=== PATIENT | male | born 1955 | race Caucasian/White ===

== ENCOUNTER 2017-11-03 10:18 | Emergency (ER) | payer SELFPAY ==
[2017-11-03] MEDS ORDERED: MORPHINE SULFATE 10 MG/ML SYRINGE. IM ONE (10:45)
[2017-11-03] MEDS ORDERED: ONDANSETRON ODT 4 MG TAB.RAPDIS PO ONE (10:45)
[2017-11-03] MEDS ORDERED: oxyCODONE/APAP 5/325 1 TAB TABLET PO ONE (12:15)
--- NOTE | 2017-11-03 12:27 | RAD ---
Scrotal ultrasound, 11/03/2017: HISTORY: Right-sided pain The right testicle measures 2.8 x 2.2 x 3.6 cm while the left testicle measures 2.7 x 1.9 x 3.4 cm. There is symmetric blood flow within the testicles. There are single small nonspecific calcifications in both testicles. No testicular mass is seen. No epididymal abnormality is detected. Small bilateral hydroceles are noted. IMPRESSION: 1. Small bilateral hydroceles. 2. No significant testicular abnormality is detected. Electronically signed by: Jonathan Loving MD (11/03/2017 12:24 PM) [facility] [place]
[2017-11-03 12:43] VITALS: BP 142/87
--- NOTE | 2017-11-03 12:59 | RAD ---
History: Right groin pain radiating down the right testicle after lifting something heavy. Comparison: None. Findings: A right inguinal hernia is seen. Hernia defect is estimated at 8 mm . Hernia it is thought to contain fat. No convincing herniated bowel is identified. Impression: Small right inguinal hernia is seen. Hernia defect is estimated at 8 mm. Electronically signed by: Jaya Hardwick MD (11/03/2017 12:56 PM) [facility]
--- NOTE | 2017-11-03 13:22 | ED.ADGEN ---
Past History Past Medical History: Heart Disease, [place], Other Past Surgical History: Appendectomy, Cholecystectomy, Coronary Bypass Surgery, Pacemaker, Other Alcohol Use: None Drug Use: None Adult General Chief Complaint Chief Complaint Right groin pain [facility] HPI Patient is a 61-year-old male who presents with acute onset right groin pain radiating to right testicle while bending over and lifting a heavy mower deck. It is described as moderate to severe. It with tenderness to palpation and mild swelling on exam. No nausea vomiting. No upper mid abdominal pain. No scrotal edema swelling or obvious hernia. Flank pain or back pain. No other acute symptoms or complaints. There is left inguinal hernia repair. The injury occurred while patient was at work.[] Review of Systems Review of Systems ROS as per HPI. All other systems were reviewed and found to be within normal limits, except as documented in this note. Current Medications Current Medications Current Medications Medications (Trade) Dose Ordered Sig/Lesli Start Time Stop Time Status Last Admin Dose Admin Morphine Sulfate (Morphine 10mg Syringe) 10 mg 1X ONCE 11/03/17 10:45 11/03/17 10:47 DC 11/03/17 10:45 10 MG Ondansetron HCl (Zofran Odt) 4 mg 1X ONCE 11/03/17 10:45 11/03/17 10:47 DC 11/03/17 10:45 4 MG Oxycodone/ Acetaminophen (Percocet 5/325) 1 tab 1X ONCE 11/03/17 12:15 11/03/17 12:18 DC 11/03/17 12:14 1 TAB Allergies Allergies Allergies Coded Allergies Type Severity Reaction Last Updated Verified No Known Drug Allergies 11/03/17 No Physical Exam Physical Exam Constitutional: Well developed, well nourished, moderate discomfort secondary to pain. [] HENT: Normocephalic, atraumatic, bilateral external ears normal, oropharynx moist, nose normal. [] Eyes: PERRLA, EOMI, conjunctiva normal, no discharge. [] Neck: Normal range of motion, no tenderness, supple, no stridor. [] Cardiovascular:Heart rate regular rhythm, no murmur [] Lungs & Thorax: Bilateral breath sounds clear to auscultation [] Abdomen: Bowel sounds normal, soft, no tenderness. [] : Right inguinal tenderness to palpation, mild edema, no scrotal pain, tenderness, masses or bruising. Right testicular pain/tenderness, mild. Penis circumcised. [] Back: No tenderness. [] Extremities: No tenderness, no cyanosis, no clubbing, ROM intact, no edema. [] Neurologic: Alert and oriented X 3, normal motor function, normal sensory function, no focal deficits noted. [] Psychologic: Affect normal, judgement normal, mood normal. [] Current Patient Data Vital Signs Vital Signs Date Time Temp Pulse Resp B/P (MAP) Pulse Ox O2 Delivery O2 Flow Rate FiO2 11/03/17 10:18 98.0 73 16 98 Room Air EKG EKG [] Radiology/Procedures Radiology/Procedures [Ultrasound testicular/scrotal/abdominal limited: Small right inguinal hernia, small bilateral hydroceles per radiology report.] Course & Med Decision Making Course & Med Decision Making Pertinent Labs and Imaging studies reviewed. (See chart for details) [Exam consistent with right inguinal hernia secondary to lifting. No evidence of bowel trauma. Pain addressed with improvement. Recommendations/work comp follow-up. Will treat supportively.] Final Impression Final Impression [1. Right inguinal pain 2. Right inguinal hernia] Dragon Disclaimer Dragon Disclaimer This electronic medical record was generated, in whole or in part, using a voice recognition dictation system. JESSICA SHAH DO November 03, 2017 13:22
== END 2017-11-03 13:15 | disposition home or self-care (01) ==
LOC: ER 10:18
DX: K40.90 Unilateral inguinal hernia, without obstruction or gangrene, not specified as recurrent (principal); N43.3 Hydrocele, unspecified; I25.2 Old myocardial infarction; Z90.49 Acquired absence of other specified parts of digestive tract; Z95.0 Presence of cardiac pacemaker; Z95.1 Presence of aortocoronary bypass graft
CPT/HCPCS: 76870; 93975; 96372; 99284; J2270; Q0162

== ENCOUNTER 2017-11-13 14:15 | Emergency (ER) | payer OTHER, MEDICARE ==
[2017-11-13] MEDS ORDERED: IV NORMAL SALINE 1,000ML 1,000 ML IV SCH (16:12)
[2017-11-13] MEDS ORDERED: PROCHLORPERAZINE 10 MG/2 ML VIAL. IV ONE (16:30)
[2017-11-13] MEDS ORDERED: CONTRAST GIVEN MC PRN (17:00)
[2017-11-13] MEDS ORDERED: IOHEXOL 300 MG/ML 75 ML VIAL. IV ONE (17:15)
[2017-11-13] MEDS: HYDROmorphone PF 1 MG/ML DISP.SYRIN IV/SQ PRN ×2 (17:23→18:38)
[2017-11-13 17:41] LABS: BASO % 0 % (0-3); EOS # 0.1 x10^3/uL (0.0-0.7); EOS % 1 % (0-3); HEMATOCRIT 41.8 % (39.0-53.0); HEMOGLOBIN 14.3 g/dL (13.0-17.5); LYMPH # 2.9 x10^3/uL (1.0-4.8); LYMPH % 44 % (24-48); MEAN CORPUSCULAR HEMOGLOBIN 31 pg (25-35); MEAN CORPUSCULAR HGB CONC 34 g/dL (31-37); MEAN CORPUSCULAR VOLUME 89 fL (79-100); MONO # 0.5 x10^3/uL (0.0-1.1); MONO % 7 % (0-9); NEUT # 3.2 x10^3uL (1.8-7.7); NEUT % 48 % (31-73); PLATELET COUNT 189 x10^3/uL (140-400); RED BLOOD COUNT 4.68 x10^6/uL (4.30-5.70); RED CELL DISTRIBUTION WIDTH 13.3 % (11.5-14.5); WHITE BLOOD COUNT 6.6 x10^3/uL (4.0-11.0)
[2017-11-13 17:53] LABS: ALBUMIN 3.5 g/dL (3.4-5.0); ALBUMIN/GLOBULIN RATIO 0.9 (1.0-1.7); CALCIUM 8.3 mg/dL (8.5-10.1); POTASSIUM 4.1 mmol/L (3.5-5.1); TOTAL BILIRUBIN 0.4 mg/dL (0.2-1.0); TOTAL PROTEIN 7.2 g/dL (6.4-8.2)
[2017-11-13 18:10] LABS: BACTERIA,URINE 0 /HPF (0-FEW); BILIRUBIN,URINE NEG (NEG); CLARITY,URINE HAZY; COLOR,URINE YELLOW; GLUCOSE,URINE NEG (NEG); NITRITE,URINE NEG (NEG); SQUAMOUS EPITHELIAL CELL,UR MOD /LPF; UROBILINOGEN,URINE 4 mg/dL (0.2 mg/dL)
[2017-11-13 18:39] VITALS: BP 139/54
--- NOTE | 2017-11-13 18:58 | RAD ---
CT ABD PELV W/ IV CONTRST ONLY dated 11/13/2017 5:33 PM Indication:. [id number] Omni 300 75cc: Lower abdominal and pelvic pain today. Hx: Small bowel obstruction x 3, cholecystectomy . Comparison: 04/13/2010 Technique: Contiguous axial imaging of the abdomen and pelvis performed after the intravenous administration of 75 cc Omnipaque 300. One or more of the following individualized dose reduction techniques were utilized for this examination: 1. Automated exposure control 2. Adjustment of the mA and/or kV according to patient size 3. Use of iterative reconstruction technique Findings: Limited images of lung bases are clear. Minimal linear scar or atelectasis right lower lobe. Heart size upper limits of normal. No pleural or pericardial effusion. Liver, spleen, pancreas, adrenal glands unremarkable. The gallbladder is surgically absent. Kidneys are symmetric in enhancement without hydronephrosis. Well-defined low-density foci at the mid and lower pole right kidney and mid and lower pole left kidney, most consistent with cysts. Unopacified GI tract is normal in caliber and contour. No focal bowel wall thickening. No inflammatory stranding in the mesentery. No ascites or lymphadenopathy. Appendix is not clearly identified. Abdominal aorta normal in caliber. Images of pelvis show nondistended urinary bladder. There is mild diffuse bladder wall thickening. Prostate gland mildly enlarged. No free fluid. Small right inguinal hernia containing only fat. Bone windows show no acute findings. IMPRESSION: 1. No acute abnormality of abdomen or pelvis. 2. Low-density lesions of both kidneys, likely cysts. 3. Status post cholecystectomy. 4. Small right inguinal hernia containing only fat. 5. Mild diffuse wall thickening of the urinary bladder, nonspecific. Consider acute or chronic cystitis. Electronically signed by: Jaya López MD (11/13/2017 6:55 PM) [facility]
--- NOTE | 2017-11-13 18:59 | ED.ADGEN ---
Past History Past Medical History: Heart Disease, [place], Other Past Surgical History: Appendectomy, Cholecystectomy, Coronary Bypass Surgery, Pacemaker, Other Alcohol Use: None Drug Use: None Adult General Chief Complaint Chief Complaint " Lt. Lower abd. pain..." ( See Dr Ovalle Chart for details.) HPI HPI Patient is a 62 year old male who presents with above hx. Pt. denies trauma. Has know Rt. inguinal hernia. No specific history of bowel changes. Passing gas and stool. No history of fever or chills. No history of travel. No history of specific ill contacts. No history immunosuppression. Review of Systems Review of Systems Constitutional: Denies fever or chills [] Eyes: Denies change in visual acuity, redness, or eye pain [] HENT: Denies nasal congestion or sore throat [] Respiratory: Denies cough or shortness of breath [] Cardiovascular: No additional information not addressed in HPI [] GI: Plaints left lower abdominal pain,. Denies nausea, vomiting, bloody stools or diarrhea [] : Denies dysuria or hematuria [] Musculoskeletal: Denies back pain or joint pain [] Integument: Denies rash or skin lesions [] Neurologic: Denies headache, focal weakness or sensory changes [] Endocrine: Denies polyuria or polydipsia [] All other systems were reviewed and found to be within normal limits, except as documented in this note. Family History Family History Noncontributory Current Medications Current Medications Current Medications Medications (Trade) Dose Ordered Sig/Lesli Start Time Stop Time Status Last Admin Dose Admin Ceftriaxone Sodium 1 gm/ Sodium Chloride 50 ml @ 100 mls/hr 1X ONCE 11/13/17 19:15 11/13/17 19:44 DC 11/13/17 20:24 100 MLS/HR Ceftriaxone Sodium (Rocephin) 1 gm STK-MED ONCE 11/13/17 20:11 11/13/17 20:12 DC Hydromorphone HCl (Dilaudid) 0.5 mg PRN Q15MIN PRN 11/13/17 16:15 11/13/17 22:18 DC 11/13/17 18:38 0.5 MG Info (Do NOT chart on this entry -- for MONITORING) 1 each PRN DAILY PRN 11/13/17 17:00 11/13/17 22:18 DC Iohexol (Omnipaque 300 Mg/ml) 75 ml 1X ONCE 11/13/17 17:15 11/13/17 17:16 DC 11/13/17 17:37 75 ML Phenazopyridine HCl (Pyridium) 200 mg 1X ONCE 11/13/17 19:15 11/13/17 19:16 DC 11/13/17 20:22 200 MG Prochlorperazine Edisylate (Compazine) 5 mg 1X ONCE 11/13/17 16:30 11/13/17 16:31 DC 11/13/17 17:27 5 MG Sodium Chloride 50 ml @ As Directed STK-MED ONCE 11/13/17 20:11 11/13/17 20:12 DC Allergies Allergies Allergies Coded Allergies Type Severity Reaction Last Updated Verified No Known Drug Allergies 11/13/17 No Physical Exam Physical Exam Constitutional: Moderate distress, non-toxic appearance. [] HENT: Normocephalic, atraumatic, bilateral external ears normal, oropharynx moist, no oral exudates, nose normal. [] Eyes: PERRLA, EOMI, conjunctiva normal, no discharge. [] Neck: Normal range of motion, no tenderness, supple, no stridor. [] Cardiovascular:Heart rate regular rhythm, no murmur [] Lungs & Thorax: Bilateral breath sounds clear to auscultation [] Abdomen: Bowel sounds normal, soft, Lt. lower tenderness, no masses, no pulsatile masses. [] Mild distention. Old surgical scars. Skin: Warm, dry, no erythema, no rash. [] Back: No tenderness, no CVA tenderness. [] Extremities: No tenderness, no cyanosis, no clubbing, ROM intact, no edema. [] No psoas or obturator sign. Neurologic: Alert and oriented X 3, normal motor function, normal sensory function, no focal deficits noted. [] Psychologic: Affect anxious, judgement normal, mood normal. [] Current Patient Data Vital Signs Vital Signs Date Time Temp Pulse Resp B/P (MAP) Pulse Ox O2 Delivery O2 Flow Rate FiO2 11/13/17 18:39 75 18 139/54 (82) 98 Room Air 11/13/17 14:15 97.5 Lab Results Laboratory Tests Test 11/13/17 17:01 11/13/17 17:15 Urine Collection Type Unknown Urine Color Yellow Urine Clarity Hazy Urine pH 7.0 Urine Specific [place] 1.025 Urine Protein 30 mg/dl (NEG-TRACE) Urine Glucose (UA) Neg mg/dL (NEG) Urine Ketones (Stick) Neg mg/dL (NEG) Urine Blood Neg (NEG) Urine Nitrite Neg (NEG) Urine Bilirubin Neg (NEG) Urine Urobilinogen Dipstick 4 mg/dL (0.2 mg/dL) Urine Leukocyte Esterase Neg (NEG) Urine RBC 6-10 /HPF (0-2) Urine WBC 1-4 /HPF (0-4) Urine Squamous Epithelial Cells Mod /LPF Urine Bacteria 0 /HPF (0-FEW) Urine Mucus Mod /LPF White Blood Count 6.6 x10^3/uL (4.0-11.0) Red Blood Count 4.68 x10^6/uL (4.30-5.70) Hemoglobin 14.3 g/dL (13.0-17.5) Hematocrit 41.8 % (39.0-53.0) Mean Corpuscular Volume 89 fL (79-100) Mean Corpuscular Hemoglobin 31 pg (25-35) Mean Corpuscular Hemoglobin Concent 34 g/dL (31-37) Red Cell Distribution Width 13.3 % (11.5-14.5) Platelet Count 189 x10^3/uL (140-400) Neutrophils (%) (Auto) 48 % (31-73) Lymphocytes (%) (Auto) 44 % (24-48) Monocytes (%) (Auto) 7 % (0-9) Eosinophils (%) (Auto) 1 % (0-3) Basophils (%) (Auto) 0 % (0-3) Neutrophils # (Auto) 3.2 x10^3uL (1.8-7.7) Lymphocytes # (Auto) 2.9 x10^3/uL (1.0-4.8) Monocytes # (Auto) 0.5 x10^3/uL (0.0-1.1) Eosinophils # (Auto) 0.1 x10^3/uL (0.0-0.7) Basophils # (Auto) 0.0 x10^3/uL (0.0-0.2) Sodium Level 140 mmol/L (136-145) Potassium Level 4.1 mmol/L (3.5-5.1) Chloride Level 106 mmol/L (98-107) Carbon Dioxide Level 25 mmol/L (21-32) Anion Gap 9 (6-14) Blood Urea Nitrogen 23 mg/dL (8-26) Creatinine 1.0 mg/dL (0.7-1.3) Estimated GFR (Cockcroft-Gault) 76.0 BUN/Creatinine Ratio 23 (6-20) H Glucose Level 92 mg/dL (70-99) Calcium Level 8.3 mg/dL (8.5-10.1) L Total Bilirubin 0.4 mg/dL (0.2-1.0) Aspartate Amino Transferase (AST) 45 U/L (15-37) H Alanine Aminotransferase (ALT) 60 U/L (16-63) Alkaline Phosphatase 104 U/L (46-116) Total Protein 7.2 g/dL (6.4-8.2) Albumin 3.5 g/dL (3.4-5.0) Albumin/Globulin Ratio 0.9 (1.0-1.7) L Lipase 207 U/L (73-393) EKG EKG [] Radiology/Procedures Radiology/Procedures CT- eval. no acute surgical process. Possible Cystitis. []See formal report. Course & Med Decision Making Course & Med Decision Making Pertinent Labs and Imaging studies reviewed. (See chart for details) Complete course of antibiotics. Follow-up primary care. Clear fluid diet for the next 48 hours. Avoid constipation. Consider urology eval patient as well as colonoscopy. Return if any concerns. [] Final Impression Final Impression 1. Rt. Inguinal Hernia-fat 2. Lt. Lower Abd Pain 3. Possible cystitis[] Dragon Disclaimer Dragon Disclaimer This electronic medical record was generated, in whole or in part, using a voice recognition dictation system. JACINTA CALZADA MD November 13, 2017 18:59
[2017-11-13] MEDS ORDERED: HYDR-79 PO (19:15)
[2017-11-13] MEDS ORDERED: LEVO500T59 PO (19:15)
[2017-11-13] MEDS ORDERED: PHENAZOPYRIDINE 200 MG TABLET. PO ONE (19:15)
[2017-11-13] MEDS ORDERED: PHEN-318 PO (19:15)
[2017-11-13] MEDS ORDERED: IV NORMAL SALINE 50ML 50 ML ONE (20:11)
[2017-11-13] MEDS ORDERED: cefTRIAXone SODIUM 1 GM VIAL IV ONE (20:11)
== END 2017-11-13 21:04 | disposition home or self-care (01) ==
LOC: ER 14:15
DX: K40.90 Unilateral inguinal hernia, without obstruction or gangrene, not specified as recurrent (principal); I25.2 Old myocardial infarction; Z90.49 Acquired absence of other specified parts of digestive tract; Z95.0 Presence of cardiac pacemaker; Z95.1 Presence of aortocoronary bypass graft
CPT/HCPCS: 36415; 74177; 80053; 81001; 83690; 85025; 96365; 96372; 96375; 99285; J0696; J0780; J1170; Q9967; J7030

== ENCOUNTER 2021-01-20 13:30 | Emergency (ER) | payer OTHER ==
[~2021-01-20] VITALS: Ht 177.8 cm; Wt 86.3 kg
[~2021-01-20 13:30] MED LIST: HYDR-1179 PO; LEVO500T59 PO; PHEN-318 PO
[2021-01-20 13:45] VITALS: BP 112/78
--- NOTE | 2021-01-20 14:29 | PHYS DOC ---
Past History Past Medical History: Heart Disease, [place], Other Past Surgical History: Appendectomy, Cholecystectomy, Other Additional Past Surgical Histo: CABG X3 2 TIMES; CARDIAC STENTS X2; SM BOWEL OBSTRUCTION; HERNIA Alcohol Use: None Drug Use: None General Adult EDM: Chief Complaint: GROIN PAIN HPI: HPI: 65-year-old male presents with right groin pain. The patient was lifting a tire from his race car up onto a rack when he felt pain in the right groin. This was about an hour ago. The patient believes he may have hurt himself up to 2 weeks ago when he had some discomfort but it was mild and manageable. The pain today caused him to have 1 episode of vomiting. He denies swelling or tenderness of the testicles. Denies dysuria or penile discharge. Review of Systems: Review of Systems: Constitutional: Denies fever or chills Eyes: Denies change in visual acuity HENT: Denies nasal congestion or sore throat Respiratory: Denies cough or shortness of breath Cardiovascular: Denies chest pain or edema GI: Denies abdominal pain, nausea, vomiting, bloody stools or diarrhea : Right groin pain Musculoskeletal: Denies back pain or joint pain Integument: Denies rash Neurologic: Denies headache, focal weakness or sensory changes Endocrine: Denies polyuria or polydipsia Lymphatic: Denies swollen glands Psychiatric: Denies depression or anxiety Allergies: Allergies: Allergies Coded Allergies Type Severity Reaction Last Updated Verified No Known Drug Allergies 01/20/21 No Physical Exam: PE: Constitutional: Well developed, well nourished, no acute distress, non-toxic appearance. [] HENT: Normocephalic, atraumatic, bilateral external ears normal, oropharynx moist, no oral exudates, nose normal. [] Eyes: PERRLA, EOMI, conjunctiva normal, no discharge. [] Neck: Normal range of motion, no tenderness, supple, no stridor. [] Cardiovascular:Heart rate regular rhythm, no murmur [] Lungs & Thorax: Bilateral breath sounds clear to auscultation [] Abdomen: Bowel sounds normal, soft, tenderness of the right inguinal region, no masses, no pulsatile masses. [] Skin: Warm, dry, no erythema, no rash. [] Back: No tenderness, no CVA tenderness. [] Extremities: No tenderness, no cyanosis, no clubbing, ROM intact, no edema. [] Neurologic: Alert and oriented X 3, normal motor function, normal sensory function, no focal deficits noted. [] Psychologic: Affect normal, judgement normal, mood normal. [] Current Patient Data: Vital Signs: Vital Signs Date Time Temp Pulse Resp B/P (MAP) Pulse Ox O2 Delivery O2 Flow Rate FiO2 01/20/21 13:45 98.2 87 20 112/78 99 EKG: EKG: [] Radiology/Procedures: Radiology/Procedures: [] Impressions: INDICATION: Reason: R inguinal pain / Spl. Instructions: / History: . COMPARISON: November 13, 2017 TECHNIQUE: Axial CT images obtained through the abdomen and pelvis with contrast. One or more of the following individualized dose reduction techniques were utilized for this examination: 1. Automated exposure control; 2. Adjustment of the mA and/or kV according to patient size; 3. Use of iterative reconstruction technique. FINDINGS: Partial visualization of pacemaker lead. Severe atherosclerotic disease. Postcholecystectomy with dilatation of the intrahepatic and extrahepatic bile ducts. Subcentimeter low-density lesion within the anterior aspect of the liver likely present on prior as well and a common finding. No peripancreatic fluid collection. No hydronephrosis. There are several bilateral renal cystic lesions. Urinary bladder wall is prominent in thickness. The prostate is enlarged and indents the bladder base. There is some heterogeneity within the prostate as well with a region of low density at the left side of the prostate measuring approximately 15 mm. Colonic diverticulosis. No dilated loops of bowel to suggest obstruction. Appendix not well visualized. Degenerative changes the spine with multilevel central canal and neural foraminal stenosis. IMPRESSION: * Soft tissue density is seen at the right inguinal region measuring approximately 33 x 15 mm. Nonspecific finding with one possible cause would include an enlarged lymph node in the area or related to prior surgery to the region such as an area of fibrosis. Follow-up could be obtained to ensure no growth to exclude a small mass in the area. This appears new when compared to 2018. There is also a high density round masslike structure in the left inguinal region measuring approximately 12 mm but this was seen on prior as well. Could be from a partially calcified lymph node. * Prostate is enlarged and indents the bladder base. There is a small regional low density within the prostate which could be secondary to some heterogenous tissue with a cyst within but would correlate with symptoms to ensure that this is not from alternative cause such as prostatitis. * Prominence of the urinary bladder wall. Given the enlarged prostate this could be secondary to chronic partial bladder outlet obstruction. * Dilatation of the bile ducts postcholecystectomy. This is commonly seen postoperatively but does appear more prominent than average but was also on present exam as well. * Suspected small hydrocele Electronically signed by: Nicol Campbell MD (01/20/2021 4:22 PM) [id number] DICTATED AND SIGNED BY: NICOL CAMPBELL MD DATE: 01/20/21 1608 CC: JESSICA GARCIA DO; ZURDO CHOI MD ~MTH0 0 Heart Score: C/O Chest Pain: N/A Risk Factors: Risk Factors: DM, Current or recent (<one month) smoker, HTN, HLP, family history of CAD, obesity. Risk Scores: Score 0 - 3: 2.5% MACE over next 6 weeks - Discharge Home Score 4 - 6: 20.3% MACE over next 6 weeks - Admit for Clinical Observation Score 7 - 10: 72.7% MACE over next 6 weeks - Early Invasive Strategies Course & Med Decision Making: Course & Med Decision Making Pertinent Labs and Imaging studies reviewed. (See chart for details) The patient CT scan shows a possible inguinal lymph node or small mass. See official read for more details. His labs are unremarkable his urinalysis is negative for infection. Have informed the patient that he needs to follow this up and make sure that it resolves. It could be that the pressure from the enlarged area is the pain that he feels. He is stable for discharge at this time. [] Dragon Disclaimer: Dragon Disclaimer: This electronic medical record was generated, in whole or in part, using a voice recognition dictation system. Departure Departure: Impression: Primary Impression: Right groin mass Disposition: HOME / SELF CARE / HOMELESS Condition: STABLE Referrals: ZURDO CHOI MD (PCP) Patient Instructions: Pelvic Mass JESSICA GARCIA DO Jan 20, 2021 14:29
[2021-01-20] MEDS ORDERED: ONDANSETRON PF 4 MG/2 ML VIAL. IVP ONE (14:30)
[2021-01-20] MEDS ORDERED: MORPHINE SULFATE 4 MG/ML DISP.SYRIN. IV ONE (14:30)
[2021-01-20] MEDS ORDERED: IV NORMAL SALINE 1,000ML 1,000 ML IV ONE (14:30)
[2021-01-20] MEDS ORDERED: IOHEXOL 300 MG/ML 75 ML VIAL. IV ONE (14:45)
[2021-01-20 15:23] LABS: BASO % 0 % (0-3); EOS # 0.1 x10^3/uL (0.0-0.7); EOS % 1 % (0-3); HEMATOCRIT 37.9 % (39.0-53.0); HEMOGLOBIN 13.1 g/dL (13.0-17.5); LYMPH # 2.5 x10^3/uL (1.0-4.8); LYMPH % 39 % (24-48); MEAN CORPUSCULAR HEMOGLOBIN 31 pg (25-35); MEAN CORPUSCULAR HGB CONC 35 g/dL (31-37); MEAN CORPUSCULAR VOLUME 90 fL (79-100); MONO # 0.4 x10^3/uL (0.0-1.1); MONO % 7 % (0-9); NEUT # 3.5 x10^3uL (1.8-7.7); NEUT % 53 % (31-73); PLATELET COUNT 194 x10^3/uL (140-400); RED BLOOD COUNT 4.19 x10^6/uL (4.30-5.70); RED CELL DISTRIBUTION WIDTH 13.7 % (11.5-14.5); WHITE BLOOD COUNT 6.6 x10^3/uL (4.0-11.0)
[2021-01-20 15:28] LABS: BILIRUBIN,URINE NEG (NEG); CLARITY,URINE HAZY; COLOR,URINE YELLOW; GLUCOSE,URINE NEG (NEG)
[2021-01-20 15:29] LABS: BACTERIA,URINE 0 /HPF (0-FEW); NITRITE,URINE NEG (NEG); RBC,URINE 0 /HPF (0-2); SQUAMOUS EPITHELIAL CELL,UR OCC /LPF; WBC,URINE 0 /HPF (0-4)
[2021-01-20 15:41] LABS: CALCIUM 8.7 mg/dL (8.5-10.1); POTASSIUM 3.6 mmol/L (3.5-5.1)
[2021-01-20 15:47] LABS: ALBUMIN 3.7 g/dL (3.4-5.0); ALBUMIN/GLOBULIN RATIO 1.1 (1.0-1.7); TOTAL BILIRUBIN 0.5 mg/dL (0.2-1.0); TOTAL PROTEIN 7.1 g/dL (6.4-8.2)
--- NOTE | 2021-01-20 16:25 | RAD ---
INDICATION: Reason: R inguinal pain / Spl. Instructions: / History: . COMPARISON: November 13, 2017 TECHNIQUE: Axial CT images obtained through the abdomen and pelvis with contrast. One or more of the following individualized dose reduction techniques were utilized for this examinat ion: 1. Automated exposure control; 2. Adjustment of the mA and/or kV according to patient size; 3 . Use of iterative reconstruction technique. FINDINGS: Partial visualization of pacemaker lead. Severe atherosclerotic disease. Postcholecystectomy with dilatation of the intrahepatic and extrahepatic bile ducts. Subcentimeter low-density lesion within the anterior aspect of the liver likely present on prior as w ell and a common finding. No peripancreatic fluid collection. No hydronephrosis. There are several bilateral renal cystic lesions. Urinary bladder wall is prominent in thickness. The prostate is enlarged and indents the bladder base. There is some heterogeneity within the prostat e as well with a region of low density at the left side of the prostate measuring approximately 15 mm . Colonic diverticulosis. No dilated loops of bowel to suggest obstruction. Appendix not well visualized. Degenerative changes the spine with multilevel central canal and neural foraminal stenosis. IMPRESSION: * Soft tissue density is seen at the right inguinal region measuring approximately 33 x 15 mm. Nonsp ecific finding with one possible cause would include an enlarged lymph node in the area or related to prior surgery to the region such as an area of fibrosis. Follow-up could be obtained to ensure no gr owth to exclude a small mass in the area. This appears new when compared to 2018. There is also a hig h density round masslike structure in the left inguinal region measuring approximately 12 mm but this was seen on prior as well. Could be from a partially calcified lymph node. * Prostate is enlarged and indents the bladder base. There is a small regional low density within th e prostate which could be secondary to some heterogenous tissue with a cyst within but would correlat e with symptoms to ensure that this is not from alternative cause such as prostatitis. * Prominence of the urinary bladder wall. Given the enlarged prostate this could be secondary to chr onic partial bladder outlet obstruction. * Dilatation of the bile ducts postcholecystectomy. This is commonly seen postoperatively but does a ppear more prominent than average but was also on present exam as well. * Suspected small hydrocele Electronically signed by: Ayaan Campbell MD (01/20/2021 4:22 PM) [id number]
[2021-01-20] MEDS ORDERED: LEVO750T5 PO (17:45)
[2021-01-20] MEDS ORDERED: HYDR-2759 PO (17:45)
== END 2021-01-20 18:00 | disposition home or self-care (01) ==
LOC: ER 13:30
DX: R19.09 Other intra-abdominal and pelvic swelling, mass and lump (principal); R10.31 Right lower quadrant pain; R11.10 Vomiting, unspecified; I25.2 Old myocardial infarction; Z90.89 Acquired absence of other organs; Z90.49 Acquired absence of other specified parts of digestive tract; Z95.1 Presence of aortocoronary bypass graft
CPT/HCPCS: 36415; 74177; 80053; 81001; 85025; 96361; 96374; 96375; 99285; J2270; J2405; J7030; Q9967